=== PATIENT | male | born 1985 | race Caucasian/White ===

== ENCOUNTER 2020-12-31 13:32 | Emergency (ER) | payer SELFPAY ==
[~2020-12-31] VITALS: Ht 170 cm; Wt 68.0 kg
--- NOTE | 2020-12-31 13:54 | ED Abdominal Pain ---
General Chief Complaint: Abdominal/GI Problems Stated Complaint: ABD PAIN Source of Information: Patient Exam Limitations: No Limitations History of Present Illness Date Seen by Provider: Dec 31, 2020 Time Seen by Provider: 13:41 Initial Comments This is a 35-year-old male who presents to the ER with complaints of upper mid abdominal pain that started a couple hours prior to arrival. States he has never had pain like this before. Describes as sharp pain that goes into his left chest wall. Took 2 Tums prior to arrival which she states may have helped a little. Does admit to drinking alcohol daily. Denies fevers, chills, cough, shortness of breath, nausea/vomiting/diarrhea, abdominal pain. Reports no past medical history. Allergies and Home Medications Allergies Coded Allergies: No Allergy Information Available (Unverified , 12/31/20) Home Medications Famotidine 20 Mg Tablet, 20 MG PO BID Prescribed by: NAZIA FONSECA on 12/31/20 1600 Patient Home Medication List Home Medication List Reviewed: Yes Review of Systems Review of Systems Constitutional: no symptoms reported EENTM: No Symptoms Reported Respiratory: No Symptoms Reported Cardiovascular: See HPI Gastrointestinal: See HPI Genitourinary: No Symptoms Reported Musculoskeletal: no symptoms reported Skin: no symptoms reported Psychiatric/Neurological: No Symptoms Reported Endocrine: No Symptoms Reported Hematologic/Lymphatic: No Symptoms Reported Physical Exam Vital Signs Vital Signs - First Documented 12/31/20 13:40 Temp 36.3 Pulse 77 Resp 20 B/P (MAP) 134/84 (101) Pulse Ox 98 O2 Delivery Room Air Capillary Refill : Height/Weight/BMI Height: '" Weight: lbs. oz. kg; BMI Method: General Appearance: WD/WN, no apparent distress HEENT: PERRL/EOMI, normal ENT inspection, TMs normal, pharynx normal Neck: full range of motion, supple, normal inspection Respiratory: chest non-tender, lungs clear, normal breath sounds, no respiratory distress, no accessory muscle use Cardiovascular: normal peripheral pulses, regular rate, rhythm, no murmur Gastrointestinal: normal bowel sounds, non tender, soft Extremities: normal range of motion, non-tender, normal inspection Neurologic/Psychiatric: no motor/sensory deficits, alert, normal mood/affect, oriented x 3 Skin: normal color, warm/dry Progress/Results/Core Measures Results/Orders Lab Results Laboratory Tests Test 12/31/20 13:55 12/31/20 14:05 Range/Units Urine Color YELLOW Urine Clarity CLEAR Urine pH 6.5 5-9 Urine Specific Mayer 1.015 L 1.016-1.022 Urine Protein NEGATIVE NEGATIVE Urine Glucose (UA) NEGATIVE NEGATIVE Urine Ketones 1+ H NEGATIVE Urine Nitrite NEGATIVE NEGATIVE Urine Bilirubin NEGATIVE NEGATIVE Urine Urobilinogen 0.2 < = 1.0 MG/DL Urine Leukocyte Esterase NEGATIVE NEGATIVE Urine RBC (Auto) NEGATIVE NEGATIVE Urine RBC NONE /HPF Urine WBC NONE /HPF Urine Crystals NONE /LPF Urine Bacteria NEGATIVE /HPF Urine Casts NONE /LPF Urine Mucus NEGATIVE /LPF Urine Culture Indicated NO White Blood Count 4.8 4.3-11.0 10^3/uL Red Blood Count 5.26 4.30-5.52 10^6/uL Hemoglobin 16.1 13.3-17.7 g/dL Hematocrit 47 40-54 % Mean Corpuscular Volume 90 80-99 fL Mean Corpuscular Hemoglobin 31 25-34 pg Mean Corpuscular Hemoglobin Concent 34 32-36 g/dL Red Cell Distribution Width 11.7 10.0-14.5 % Platelet Count 275 130-400 10^3/uL Mean Platelet Volume 10.7 9.0-12.2 fL Immature Granulocyte % (Auto) 0 % Neutrophils (%) (Auto) 58 42-75 % Lymphocytes (%) (Auto) 33 12-44 % Monocytes (%) (Auto) 7 0-12 % Eosinophils (%) (Auto) 1 0-10 % Basophils (%) (Auto) 1 0-10 % Neutrophils # (Auto) 2.8 1.8-7.8 X 10^3 Lymphocytes # (Auto) 1.6 1.0-4.0 X 10^3 Monocytes # (Auto) 0.3 0.0-1.0 X 10^3 Eosinophils # (Auto) 0.1 0.0-0.3 10^3/uL Basophils # (Auto) 0.0 0.0-0.1 10^3/uL Immature Granulocyte # (Auto) 0.0 0.0-0.1 10^3/uL Sodium Level 139 135-145 MMOL/L Potassium Level 3.6 3.6-5.0 MMOL/L Chloride Level 104 98-107 MMOL/L Carbon Dioxide Level 25 21-32 MMOL/L Anion Gap 10 5-14 MMOL/L Blood Urea Nitrogen 11 7-18 MG/DL Creatinine 0.90 0.60-1.30 MG/DL Estimat Glomerular Filtration Rate > 60 BUN/Creatinine Ratio 12 Glucose Level 127 H 70-105 MG/DL Calcium Level 9.1 8.5-10.1 MG/DL Corrected Calcium 8.5-10.1 MG/DL Total Bilirubin 0.6 0.1-1.0 MG/DL Aspartate Amino Transf (AST/SGOT) 20 5-34 U/L Alanine Aminotransferase (ALT/SGPT) 30 0-55 U/L Alkaline Phosphatase 50 40-136 U/L Troponin I < 0.028 <0.028 NG/ML Total Protein 7.8 6.4-8.2 GM/DL Albumin 4.6 H 3.2-4.5 GM/DL Lipase 16 8-78 U/L Serum Alcohol < 10 <10 MG/DL My Orders Orders - NAZIA FONSECA RACQUET MAKER Cbc With Automated Diff (12/31/20 14:11) Comprehensive Metabolic Panel (12/31/20 14:11) Lipase (12/31/20 14:11) Alcohol (12/31/20 14:11) Ct Abdomen/Pelvis W (12/31/20 14:12) Iohexol Injection (Omnipaque 350 Mg/Ml 1 (12/31/20 14:30) Received Contrast (Hold Metformin- Contr (12/31/20 14:30) Sodium Chloride Flush (Catheter Flush Sy (12/31/20 14:30) Ekg Tracing (12/31/20 14:18) Troponin I (12/31/20 14:18) Lactated Ringers (Lr 1000 Ml Iv Solution (12/31/20 14:45) Medications Given in ED Current Medications Medications Dose Ordered Sig/Flaca Route Start Time Stop Time Status Last Admin Dose Admin Iohexol 100 ml ONCE ONCE IV 12/31/20 14:30 12/31/20 14:31 DC 12/31/20 15:18 100 ML Lactated Ringer's 1,000 ml @ 0 mls/hr Q0M ONCE IV 12/31/20 14:45 12/31/20 16:31 DC 12/31/20 15:16 1,000 MLS/HR Vital Signs/I&O 3/1/21 3/1/21 13:40 16:21 Temp 36.3 36.3 Pulse 77 77 Resp 20 18 B/P (MAP) 134/84 (101) 130/80 (101) Pulse Ox 98 98 O2 Delivery Room Air Room Air Progress Progress Note : Progress Note Patient examined and in no acute distress. States he is feeling much improved and declines any pharmacological pain relief at this time. Will obtain basic labs, troponin for chest pain, lipase, and CT abdomen pelvis due to history of alcohol use and location of pain as this very well could be pancreatitis. Labs reviewed and are unremarkable. CT abdomen pelvis shows no acute findings. He reports feeling much improved throughout ED course, declined GI cocktail. States he is ready to discharge home. Reviewed discharge plan and he is agreeable with the plan. All questions addressed prior to discharge. Initial ECG Impression Date: Dec 31, 2020 Initial ECG Impression Time: 14:20 Initial ECG Rate: 77 Initial ECG Rhythm: Normal Sinus Initial ECG Impression: Normal Diagnostic Imaging Diagonstic Imaging: CT Plain Films/CT/US/NM/MRI: abdomen, pelvis Comments NAME: ALEKPAZ Ilan MED REC#: [id number] PT STATUS: DEP ER : 1985 PHYSICIAN: NAZIA FONSECA RACQUET MAKER ADMIT DATE: 12/31/20/ER Signed Date of Exam:12/31/20 CT ABDOMEN/PELVIS W PROCEDURE: CT abdomen and pelvis with contrast. TECHNIQUE: Multiple contiguous axial images were obtained through the abdomen and pelvis after administration of intravenous contrast. Auto Exposure Controls were utilized during the CT exam to meet ALARA standards for radiation dose reduction. All CT scans use one or more of the following dose optimizing techniques: automated exposure control, MA and/or KvP adjustment based on patient size and exam type or iterative reconstruction. INDICATION: Left flank and abdominal pain. FINDINGS: There is no hydroureteronephrosis. The unobstructed kidneys appear nonfocal and nonacute. No ascites, abscess, hematoma, or other acute fluid collection. There are no findings of diverticulitis or appendicitis. No perienteric or pericolonic edema. No focal inflammatory process. No pneumatosis or free gas. No ileus or bowel obstruction. The urinary bladder is unremarkable. The lung bases and the bony structures are nonacute. No mesenteric or retroperitoneal adenopathy. IMPRESSION: No obstructive features, inflammatory process, or acute abnormality is identified. Dictated by: Dictated on workstation # [id number] Dict: 12/31/20 1527 Trans: 12/31/20 1658 [id number] Interpreted by: VENITA CHEN Electronically signed by: VENITA CHEN 12/31/20 1658 Departure Impression Primary Impression: GERD (gastroesophageal reflux disease) Disposition: HOME, SELF-CARE Condition: Improved Departure-Patient Inst. Decision time for Depature: 15:59 Referrals: NO,LOCAL PHYSICIAN (PCP/Family) Primary Care Physician Patient Instructions: Acid Reflux and GERD in Adults (DC) Add. Discharge Instructions: Plan: 1. Discharge home. 2. Avoid spicy, greasy foods. 3. Take Pepcid as directed to help reduce symptoms. 4. Establish with a primary care provider. 5. Return to ER for any new, concerning, or worsening symptoms. All discharge instructions reviewed with patient and/or family. Voiced understanding. Scripts Famotidine (Pepcid) 20 Mg Tablet 20 MG PO BID for 14 Days, #30 TAB 0 Refills Prov: NAZIA FONSECA RACQUET MAKER 12/31/20 NAZIA FONSECA RACQUET MAKER Dec 31, 2020 13:54
[2020-12-31 14:06] LABS: BILIRUBIN,URINE NEGATIVE (NEGATIVE); CLARITY,URINE CLEAR; COLOR,URINE YELLOW; GLUCOSE, URINE (UA) NEGATIVE (NEGATIVE); KETONES,URINE 1+ (NEGATIVE); LEUKOCYTE ESTERASE ,URINE NEGATIVE (NEGATIVE); NITRITE,URINE NEGATIVE (NEGATIVE); PH,URINE 6.5 (5-9); PROTEIN,URINE NEGATIVE (NEGATIVE)
[2020-12-31 14:22] LABS: BASOPHILS % (AUTO) 1 % (0-10); EOSINOPHILS # (AUTO) 0.1 10^3/uL (0.0-0.3); EOSINOPHILS % (AUTO) 1 % (0-10); HEMATOCRIT 47 % (40-54); HEMOGLOBIN 16.1 g/dL (13.3-17.7); LYMPHOCYTES # (AUTO) 1.6 X 10^3 (1.0-4.0); LYMPHOCYTES % (AUTO) 33 % (12-44); MEAN CORPUSCULAR HEMOGLOBIN 31 pg (25-34); MEAN CORPUSCULAR HGB CONC 34 g/dL (32-36); MEAN CORPUSCULAR VOLUME 90 fL (80-99); MEAN PLATELET VOLUME 10.7 fL (9.0-12.2); MONOCYTES # (AUTO) 0.3 X 10^3 (0.0-1.0); MONOCYTES % (AUTO) 7 % (0-12); NEUTROPHILS # (AUTO) 2.8 X 10^3 (1.8-7.8); NEUTROPHILS % (AUTO) 58 % (42-75); PLATELET COUNT 275 10^3/uL (130-400); WHITE BLOOD COUNT 4.8 10^3/uL (4.3-11.0)
[2020-12-31 14:27] LABS: ALBUMIN 4.6 GM/DL (3.2-4.5); CHLORIDE 104 MMOL/L (98-107); POTASSIUM 3.6 MMOL/L (3.6-5.0); SODIUM 139 MMOL/L (135-145)
[2020-12-31 14:29] LABS: BACTERIA,URINE NEGATIVE /HPF
[2020-12-31 14:29] LABS: CALCIUM 9.1 MG/DL (8.5-10.1)
[2020-12-31 14:30] LABS: GLUCOSE 127 MG/DL (70-105); TOTAL PROTEIN 7.8 GM/DL (6.4-8.2)
[2020-12-31] MEDS ORDERED: HOLD METFORMIN - RECEIVED CONTRAST 20 ML VIAL IV SCH (14:30)
[2020-12-31] MEDS ORDERED: CATHETER FLUSH 10 ML SYR IV PRN (14:30)
[2020-12-31] MEDS ORDERED: IOHEXOL 350 MG/ML 100 ML (OMNIPAQUE 350) VIAL IV ONE (14:30)
[2020-12-31 14:31] LABS: CARBON DIOXIDE 25 MMOL/L (21-32)
[2020-12-31 14:32] LABS: BILIRUBIN,TOTAL 0.6 MG/DL (0.1-1.0)
[2020-12-31 14:33] LABS: ALKALINE PHOSPHATASE 50 U/L (40-136)
[2020-12-31 14:34] LABS: GFR ESTIMATED > 60
[2020-12-31 14:35] LABS: BUN/CREATININE RATIO 12
[2020-12-31 14:36] LABS: ALANINE AMINOTRANSFERASE 30 U/L (0-55)
[2020-12-31 14:37] LABS: LIPASE 16 U/L (8-78)
[2020-12-31] MEDS ORDERED: LACTATED RINGERS 1,000 ML IV ONE (14:45)
--- NOTE | 2020-12-31 15:31 | Diagnostic Imaging Report ---
PROCEDURE: CT abdomen and pelvis with contrast. TECHNIQUE: Multiple contiguous axial images were obtained through the abdomen and pelvis after administration of intravenous contrast. Auto Exposure Controls were utilized during the CT exam to meet ALARA standards for radiation dose reduction. All CT scans use one or more of the following dose optimizing techniques: automated exposure control, MA and/or KvP adjustment based on patient size and exam type or iterative reconstruction. INDICATION: Left flank and abdominal pain. FINDINGS: There is no hydroureteronephrosis. The unobstructed kidneys appear nonfocal and nonacute. No ascites, abscess, hematoma, or other acute fluid collection. There are no findings of diverticulitis or appendicitis. No perienteric or pericolonic edema. No focal inflammatory process. No pneumatosis or free gas. No ileus or bowel obstruction. The urinary bladder is unremarkable. The lung bases and the bony structures are nonacute. No mesenteric or retroperitoneal adenopathy. IMPRESSION: No obstructive features, inflammatory process, or acute abnormality is identified. Dictated by: Dictated on workstation # [id number]
[2020-12-31] MEDS ORDERED: FAMO-119 PO (16:00)
[2020-12-31 16:21] VITALS: BP 130/80
== END 2020-12-31 16:21 | disposition home or self-care (01) ==
LOC: EDUNIT# 13:32 → ER 13:34
DX: K21.9 Gastro-esophageal reflux disease without esophagitis (principal)
CPT/HCPCS: 74177; 80053; 81000; 83690; 84484; 85025; 93005; 99284; G0480; 36415; 80320